=== PATIENT | female | born 1945 | race Caucasian/White ===

== ENCOUNTER 2019-06-30 07:03 | Day surgery (SDC) | payer MEDICARE, BC ==
[~2019-06-30 07:03] MED LIST: Sodium Chloride 0.9% 10 ML Syringe FLUSH PRN
[2019-06-30] MEDS ORDERED: Propofol 200 MG/20 ML SDV ONE ×3 (07:41→09:45)
[2019-06-30] MEDS ORDERED: fentaNYL 100 MCG/2 ML SDV ONE ×2 (07:41→07:42)
[2019-06-30] MEDS ORDERED: Ondansetron 4 MG/2 ML SDV ONE (07:46)
[2019-06-30] MEDS: Lactated Ringers 1,000 ML IV SCH (08:17)
--- NOTE | 2019-06-30 10:52 | OR ---
PREOPERATIVE DIAGNOSIS: Diagnostic colonoscopy and one episode of bright red blood per rectum. POSTOPERATIVE DIAGNOSES: 1. Pancolonic diverticulosis. 2. Internal hemorrhoids. BRIEF HISTORY OF PRESENT ILLNESS: Ms. Tanner is a 73-year-old female who has last had a colonoscopy greater than 10 years ago. She does not recall if there were polyps. I do not have records of this. At this time, she had a single episode of blood in her stool, none since and none before. No dark black stools. No family history or personal history of colorectal cancer. She is here for diagnostic colonoscopy. ANESTHESIA: MAC anesthesia. COMPLICATIONS: None. BLOOD LOSS: Minimal. START TIME: 0930. CECUM TIME: 0953. END TIME: 0959. FINDINGS: 1. Pancolonic diverticulosis. 2. Internal hemorrhoids. PREP QUALITY: Center class II. DETAILS OF PROCEDURE: After informed consent was obtained, the patient was brought to the operating room. MAC anesthesia was induced by Anesthesia colleagues. We began with a digital rectal exam which was unremarkable. Using the Endocuff device, the colonoscope was introduced into the anal canal. The sigmoid colon was tremendously difficult to get past and required multiple changes in abdominal pressure, and ultimately, we were able to get past it. I suspect this is related to her prior hysterectomy and her thin habitus. The colonoscope was then advanced all the way to the cecum. The appendiceal orifice and the IC valve were photographed. The colonoscope was then slowly withdrawn. No pathology was identified except for what is mentioned above in the findings. She did have internal hemorrhoids on the retroflexed view. We found no polyps. She will need another colonoscopy in 10 years. RKM: 06/30/2019 10:09:15 MODL: 06/30/2019 10:28:59 /[id number]
== END 2019-06-30 12:08 | disposition home or self-care (01) ==
LOC: VM.SDS 07:03
PROVIDERS: ATTEND Student in an Organized Health Care Education/Training Program
DX: K57.31 Diverticulosis of large intestine without perforation or abscess with bleeding (principal); K64.8 Other hemorrhoids; I10 Essential (primary) hypertension; E78.5 Hyperlipidemia, unspecified; Z87.891 Personal history of nicotine dependence; Z86.010 Personal history of colon polyps; Z79.899 Other long term (current) drug therapy
CPT/HCPCS: J2405; J2704; J3010; J7120

== ENCOUNTER 2019-11-21 13:28 | Emergency (ER) | payer MEDICARE, BC ==
[2019-11-21] MEDS ORDERED: Sodium Chloride 0.9% 10 ML Syringe FLUSH PRN (13:39)
--- NOTE | 2019-11-21 14:16 | CT ---
[id number] CT/CT Head WO IV EXAM: CT Head WO IV CLINICAL DATA: LOWER EXTREMITY RIGHT-SIDED WEAKNESS. COMPARISON STUDY: None FINDINGS: No intracranial hemorrhage, extra-axial fluid collection, mass, or acute ischemia. No hydrocephalus. Few scattered areas of hypodensity in the subcortical and periventricular white matter of both cerebral hemispheres. Findings are nonspecific but commonly seen as sequela of chronic obstructive pulmonary disease. Paranasal sinuses and mastoid air cells are clear. IMPRESSION: No acute intracranial findings. Tr Pierce MD 11/21/19 [id number] Thank you for allowing us to participate in the care of your patient.
[2019-11-21] MEDS ORDERED: Iopamidol 612 MG/ML 100 ML Bottle IVPUSH ONE (14:24)
[2019-11-21 14:33] LABS: PTT,PARTIAL THROMBOPLSTIN TIME 26.3 SEC (25.6-32.8)
[2019-11-21 14:40] LABS: ANION GAP 12.5 mmol/L (10-20); CHLORIDE,CL 104 mmol/L (98-107); SODIUM,NA 141 mmol/L (136-145)
--- NOTE | 2019-11-21 14:54 | CT ---
[id number] CT/CTA Head Neck EXAM: CT angiogram head and neck INDICATION: STROKE CODE. COMPARISON: CT head from today. DISCUSSION: Aortic arch: The partially imaged aortic arch is normal in caliber with a conventional branching morphology. Right carotid artery: Normal in caliber. Atherosclerosis without significant stenosis or other abnormality. Left carotid artery: Normal in caliber. Atherosclerosis without significant stenosis or other abnormality. Right vertebral artery: Normal in caliber. No significant stenosis or other abnormality. Left vertebral artery: Normal in caliber. No significant stenosis or other abnormality. Basilar artery: Normal in caliber. No significant stenosis or other abnormality. [place] of [place]: Conventional morphology. No vessel cut off, significant stenosis, aneurysm or vascular malformation is identified. Dural sinuses, jugular veins and cerebral veins: Limited evaluation of the cerebral veins, dural sinuses and jugular veins is unremarkable. Brain parenchyma: Unremarkable. Neck soft tissues: Unremarkable. Osseous structures: There are scattered degenerative changes in the imaged spine. IMPRESSION: Negative for large vessel occlusion or other acute significant abnormality. Tr Pierce MD 11/21/19 [id number] Thank you for allowing us to participate in the care of your patient.
[2019-11-21] MEDS ORDERED: Aspirin 81 MG Tab.Chew PO ONE (14:58)
--- NOTE | 2019-11-21 15:02 | EDM.PDOC ---
ED HPI GENERAL MEDICAL PROBLEM - General Stated Complaint: NUMB,DIZZINESS Time Seen by Provider: 11/21/19 13:40 Source of Information: Reports: Patient History Limitations: Reports: No Limitations - History of Present Illness INITIAL COMMENTS - FREE TEXT/NARRATIVE: Patient comes emergency department today from home with her with concerns of weakness to the right side of her body. Acutely at 1325 the patient was outside and suddenly developed numbness to the right side of her face and tongue. She also had weakness to her right hand and lower extremity as well. She tried to stand up and her right was much weaker than her left. When she tried to lift up her coffee cup she felt like the coffee cup was very heavy when it did not feel that way shortly there before. She has no headache. No visual acuity changes. No chest pain or shortness of breath or difficulty breathing. No palpitations. She does complain of some generalized weakness in her lower extremities more on the right than the left. No fever no chills. No abdominal pain no nausea or vomiting. She does have a history of high cholesterol hypertension and a smoker when she was in her 20s to 30s. Went on for about 10 to 15 minutes and then she came to the emergency department. She has no change in her visual acuity. She is able to ambulate with the assistance of 1. - Related Data Allergies Allergy/AdvReac Type Severity Reaction Status Date / Time No Known Allergies Allergy Verified 06/30/19 07:59 Home Meds: Home Meds Cholecalciferol (Vitamin D3) [Vitamin D3] 1 cap PO DAILY 06/22/19 [History] Dorzolamide HCl/Timolol Maleat [Cosopt Eye Drops] 1 drop EYEBOTH BID 06/22/19 [ History] Latanoprost [Xalatan 0.005% Ophth Soln] 1 drop EYEBOTH BEDTIME 06/22/19 [History ] Multivitamin [Multivitamins] 1 tab PO DAILY 06/22/19 [History] [place]-3 Fatty Acids/Fish Oil [Fish Oil 1,000 mg Softgel] 1 cap PO DAILY [History] hydroCHLOROthiazide [Hydrochlorothiazide] 25 mg PO DAILY 06/22/19 [History] ramipriL [Altace] 10 mg PO BID 06/22/19 [History] Past Medical History HEENT History: Reports: Glaucoma, Macular Degeneration Cardiovascular History: Reports: High Cholesterol, Hypertension Respiratory History: Reports: None Gastrointestinal History: Reports: Colon Polyp Musculoskeletal History: Reports: Other (See Below) Other Musculoskeletal History: carpel tunnel repair right hand Psychiatric History: Reports: None Oncologic (Cancer) History: Reports: None Dermatologic History: Reports: Other (See Below) Other Dermatologic History: alopecia - Past Surgical History Head Surgeries/Procedures: Reports: None Respiratory Surgical History: Reports: None GI Surgical History: Reports: Colonoscopy, Other (See Below) Other GI Surgeries/Procedures: banding of hermorrhoids Female Surgical History: Reports: D&C, Hysterectomy, Other (See Below) Other Female Surgeries/Procedures: bladder mesh placed ED ROS GENERAL - Review of Systems Review Of Systems: Comprehensive ROS is negative, except as noted in HPI. ED EXAM, NEURO - Physical Exam Exam: See Below Exam Limited By: No Limitations General Appearance: Alert, WD/WN, No Apparent Distress Eye Exam: Bilateral Eye: EOMI, Normal Inspection, PERRL Ears: Normal External Exam, Normal TMs Nose: Normal Inspection Throat/Mouth: Normal Inspection, Normal Lips, Normal Teeth, Normal Gums, Normal Oropharynx, Normal Voice, No Airway Compromise Head Exam: Atraumatic, Normocephalic Neck: Normal Inspection, Supple, Non-Tender Respiratory/Chest: No Respiratory Distress, Lungs Clear, Normal Breath Sounds, No Accessory Muscle Use, Chest Non-Tender Cardiovascular: Normal Peripheral Pulses, Regular Rate, Rhythm, No Edema GI/Abdominal: Normal Bowel Sounds, Soft, Non-Tender, No Organomegaly (Female) Exam: Deferred Rectal (Female) Exam: Deferred Neurological: Alert, Normal Mood/Affect, Normal Dorsiflexion, CN II-XII Intact, Normal Plantar Flexion, Normal Gait, Normal Reflexes, Oriented x 3, Abnormal Sensation (right face), Other (NIH of 2, 1 for the weakness of the RLE and parathesia to the right face. ). No: No Motor/Sensory Deficits (With a straight leg raise on the right she does have some drifting of the lower extremity although it does not touch the bed. She has no pronator drift of the upper extremities. She does complain of paresthesia to the right side of her face and tongue.), Ataxia, Abnormal Finger to Nose, Abnormal Light Touch, Abnormal Pin Prick, Abn 2 Pt Discrimination DTR: 2+: Bicep (R), Bicep (L), Patella (R), Patella (L), Achilles (R), Achilles (L) Back Exam: Normal Inspection, Full Range of Motion Extremities: Normal Inspection, Normal Range of Motion, No Pedal Edema, Normal Capillary Refill Psychiatric: Normal Affect, Normal Mood Skin Exam: Warm, Dry, Intact, Normal Color, No Rash EKG INTERPRETATION EKG Date: 11/21/19 Time: 14:18 Rhythm: NSR Rate (Beats/Min): 67 [place]: Normal P-Wave: Present QRS: Normal ST-T: Normal QT: Normal Comparison: NA - No Prior EKG Course - Orders/Labs/Meds Orders: Active Orders 24 hr Category Date Time Status Accu Check [Blood Glucose Check, Bedside] [RC] ONETIME Care 11/21/19 13:40 Active EKG Documentation Completion [RC] STAT Care 11/21/19 13:39 Active CTA Neck W & W/O Contrast [Ang Neck] [CT] Stat Exams 11/21/19 13:39 Taken Sodium Chloride 0.9% [Saline Flush] Med 11/21/19 13:39 Active 10 ml FLUSH ASDIRECTED PRN Peripheral IV Insertion Adult [OM.PC] Stat Oth 11/21/19 13:39 Ordered Medication Orders Sodium Chloride (Saline Flush) 10 ml FLUSH ASDIRECTED PRN PRN Reason: Keep Vein Open Labs: Laboratory Tests 11/21/19 11/21/19 11/21/19 Range/Units 14:15 14:15 14:15 WBC 5.8 (4.0-10.0) x10^3/uL RBC 4.03 (4.00-5.50) x10^6/uL Hgb 12.7 (12.0-16.0) g/dL Hct 37.6 (33.0-47.0) % MCV 93.3 H (78.0-93.0) fL MCH 31.5 (26.0-32.0) pg MCHC 33.8 (32.0-36.0) g/dL RDW Coeff of [place] 12.2 (10.0-15.0) % Plt Count 362 (130-400) x10^3/uL Neut % (Auto) 65.5 (50.0-80.0) % Lymph % (Auto) 23.4 L (25.0-50.0) % [place] % (Auto) 8.8 (2.0-11.0) % Eos % (Auto) 2.1 (0.0-4.0) % Baso % (Auto) 0.2 (0.2-1.2) % PT (9.5-12.3) SEC INR (2.0-3.5) APTT (25.6-32.8) SEC Sodium 141 (136-145) mmol/L Potassium 3.5 (3.5-5.1) mmol/L Chloride 104 (98-107) mmol/L Carbon Dioxide 28 (21-32) mmol/L Anion Gap 12.5 (10-20) mmol/L BUN 18 (7-18) mg/dL Creatinine 1.0 (0.55-1.02) mg/dL Est Cr Clr Drug Dosing TNP Estimated GFR (MDRD) 55 Glucose 125 H (74-106) mg/dL POC Glucose (74-106) mg/dL Lactic Acid 1.9 (0.4-2.0) mmol/L Calcium 9.1 (8.5-10.1) mg/dL Corrected Calcium 9.90 (8.5-10.1) mg/dL Total Bilirubin 0.3 (0.2-1.0) mg/dL AST 19 (15-37) U/L ALT 11 L (14-59) U/L Alkaline Phosphatase 89 (46-116) U/L Troponin I < 0.017 (<=0.056) ng/mL C-Reactive Protein 0.4 (<=0.9) mg/dL Total Protein 6.3 L (6.4-8.2) g/dL Albumin 3.0 L (3.4-5.0) g/dL Globulin 3.3 Albumin/Globulin Ratio 0.91 11/21/19 11/21/19 Range/Units 14:15 14:17 WBC (4.0-10.0) x10^3/uL RBC (4.00-5.50) x10^6/uL Hgb (12.0-16.0) g/dL Hct (33.0-47.0) % MCV (78.0-93.0) fL MCH (26.0-32.0) pg MCHC (32.0-36.0) g/dL RDW Coeff of [place] (10.0-15.0) % Plt Count (130-400) x10^3/uL Neut % (Auto) (50.0-80.0) % Lymph % (Auto) (25.0-50.0) % [place] % (Auto) (2.0-11.0) % Eos % (Auto) (0.0-4.0) % Baso % (Auto) (0.2-1.2) % PT 10.3 (9.5-12.3) SEC INR 0.9 L (2.0-3.5) APTT 26.3 (25.6-32.8) SEC Sodium (136-145) mmol/L Potassium (3.5-5.1) mmol/L Chloride (98-107) mmol/L Carbon Dioxide (21-32) mmol/L Anion Gap (10-20) mmol/L BUN (7-18) mg/dL Creatinine (0.55-1.02) mg/dL Est Cr Clr Drug Dosing Estimated GFR (MDRD) Glucose (74-106) mg/dL POC Glucose 132 H (74-106) mg/dL Lactic Acid (0.4-2.0) mmol/L Calcium (8.5-10.1) mg/dL Corrected Calcium (8.5-10.1) mg/dL Total Bilirubin (0.2-1.0) mg/dL AST (15-37) U/L ALT (14-59) U/L Alkaline Phosphatase (46-116) U/L Troponin I (<=0.056) ng/mL C-Reactive Protein (<=0.9) mg/dL Total Protein (6.4-8.2) g/dL Albumin (3.4-5.0) g/dL Globulin Albumin/Globulin Ratio Meds: Medications Generic Name Dose Route Start Last Admin Trade Name Freq PRN Reason Stop Dose Admin Sodium Chloride 10 ml 11/21/19 13:39 Saline Flush FLUSH ASDIRECTED PRN Keep Vein Open Discontinued Medications Generic Name Dose Route Start Last Admin Trade Name Freq PRN Reason Stop Dose Admin Aspirin 243 mg 11/21/19 14:58 Aspirin PO 11/21/19 14:59 ONETIME ONE Iopamidol 100 ml 11/21/19 14:24 11/21/19 14:24 Isovue-300 (61%) IVPUSH 11/21/19 14:25 100 ml ONETIME ONE Administration - Radiology Interpretation Free Text/Narrative:: CT of the head per radiology without contrast no acute findings. CTA head and neck per radiology negative for large vessel occlusion or other acute significant abnormality. - Re-Assessments/Exams Free Text/Narrative Re-Assessment/Exam: 11/21/19 15:51 The patient's presentation a stroke code was activated immediately upon my evaluation of the patient. EKG is normal sinus rhythm She has a normal glucose. She went immediately to the CT scanner. Initial review extemporaneously by myself I do not see any acute hemorrhage or old ischemia. CTA of the head and neck was ordered. Aprox 1425 the patients symptoms of parathesia to the face and tongue and the weakness to her RLE has resolved and her NIH is now 0. I called and spoke with Dr. Santos the stroke neurologist injection mold technician at [place]. HPI ER course findings and concerns were relayed to her verbally over the phone. She accepted the patient in transfer at this time with no other intervention. THe patient did take an 81mg aspirin prior to arrival to the ED and I will give her 243 in the ED for a total full dose of aspirin. I discussed the findings and concerns of the TIA with the patient and her . Their questions were answered. They are comfortable with the plan to transfer to [facility] for further evaluation of her TIA and a stroke work- up. Departure - Departure Time of Disposition: 13:56 Disposition: DC/Tfer to Acute Hospital 02 Clinical Impression: TIA (transient ischemic attack) - Discharge Information Referrals: Kayla Montoya MD [Primary Care Provider] - Forms: Interfacility Transfer [facility] Sepsis Event Note - Focused Exam Date Exam was Performed: 11/21/19 Time Exam was Performed: 15:47 - My Orders Last 24 Hours: My Active Orders 11/21/19 13:39 EKG Documentation Completion [RC] STAT CTA Neck W & W/O Contrast [Ang Neck] [CT] Stat Sodium Chloride 0.9% [Saline Flush] 10 ml FLUSH ASDIRECTED PRN Peripheral IV Insertion Adult [OM.PC] Stat 11/21/19 13:40 Accu Check [Blood Glucose Check, Bedside] [RC] ONETIME - Assessment/Plan Last 24 Hours: My Active Orders 11/21/19 13:39 EKG Documentation Completion [RC] STAT CTA Neck W & W/O Contrast [Ang Neck] [CT] Stat Sodium Chloride 0.9% [Saline Flush] 10 ml FLUSH ASDIRECTED PRN Peripheral IV Insertion Adult [OM.PC] Stat 11/21/19 13:40 Accu Check [Blood Glucose Check, Bedside] [RC] ONETIME
== END 2019-11-21 15:35 | disposition short-term general hospital (02) ==
LOC: VM.ED 13:28
DX: G45.9 Transient cerebral ischemic attack, unspecified (principal); I10 Essential (primary) hypertension; Z79.899 Other long term (current) drug therapy
CPT/HCPCS: 36415; 70450; 70496; 70498; 80053; 82962; 83605; 84484; 85025; 85610; 85730; 86140; 93005; 93010; 99284-GF; 99285-25; Q9967

== ENCOUNTER 2022-08-06 15:38 | Inpatient (IN) | payer MEDICARE, BC ==
[2022-08-06] MEDS ORDERED: Ondansetron 4 MG/2 ML SDV IV PRN (15:59)
[2022-08-06] MEDS ORDERED: Sodium Chloride 0.9% 10 ML Syringe FLUSH PRN (15:59)
[2022-08-06] MEDS ORDERED: Ondansetron 4 MG Tab.DIS PO PRN (15:59)
[2022-08-06] MEDS ORDERED: Pantoprazole 40 MG Vial IVPUSH ONE (16:15)
[2022-08-06] MEDS ORDERED: Sodium Chloride 0.9% 1,000 ML IV SCH (16:15)
[2022-08-06] MEDS ORDERED: Acetaminophen 325 MG Tab PO PRN (17:16)
[2022-08-06] MEDS ORDERED: Latanoprost 0.005% Ophth Soln 2.5 ML Bottle EYEBOTH SCH (21:00)
[2022-08-06] MEDS ORDERED: Dorzolamide/Timolol 2%-0.5% Ophth Soln 10 ML Bottle EYEBOTH SCH (21:00)
[2022-08-06] MEDS ORDERED: RAMIPRIL 10 MG PO SCH (21:00)
[2022-08-07] MEDS ORDERED: Pantoprazole 40 MG Vial IVPUSH SCH (06:00)
[2022-08-07] MEDS ORDERED: Metoprolol Succinate 50 MG Tab.ER PO SCH (09:00)
== END 2022-08-06 20:37 | disposition short-term general hospital (02) | DRG 378 ==
LOC: VM.MS 15:38
PROVIDERS: ADMIT Internal Medicine; ATTEND Internal Medicine
DX: K92.0 Hematemesis (principal); D62 Acute posthemorrhagic anemia; Z20.822 Contact with and (suspected) exposure to COVID-19; H40.9 Unspecified glaucoma; H35.30 Unspecified macular degeneration; I48.0 Paroxysmal atrial fibrillation; Z79.01 Long term (current) use of anticoagulants; Z86.73 Personal history of transient ischemic attack (TIA), and cerebral infarction without residual deficits; Z79.82 Long term (current) use of aspirin; Z79.899 Other long term (current) drug therapy; Z98.890 Other specified postprocedural states; Z86.010 Personal history of colon polyps; Z90.710 Acquired absence of both cervix and uterus
CPT/HCPCS: 36415; 85018; C9113; J7030; U0002

== ENCOUNTER 2022-11-14 12:27 | Day surgery (SDC) | payer MEDICARE, BC ==
[2022-11-14] MEDS ORDERED: fentaNYL 100 MCG/2 ML SDV ONE (12:47)
[2022-11-14] MEDS ORDERED: Propofol 200 MG/20 ML SDV ONE (12:47)
[2022-11-14] MEDS: Lactated Ringers 1,000 ML IV SCH (12:56)
== END 2022-11-14 15:55 | disposition home or self-care (01) ==
LOC: VM.SDS 12:27
PROVIDERS: ATTEND Family Medicine
DX: K31.89 Other diseases of stomach and duodenum (principal); I10 Essential (primary) hypertension; E78.5 Hyperlipidemia, unspecified; I47.1 Supraventricular tachycardia; I48.91 Unspecified atrial fibrillation; Z87.19 Personal history of other diseases of the digestive system; Z79.01 Long term (current) use of anticoagulants; Z86.010 Personal history of colon polyps; Z86.73 Personal history of transient ischemic attack (TIA), and cerebral infarction without residual deficits; Z98.890 Other specified postprocedural states; Z79.899 Other long term (current) drug therapy; Z90.710 Acquired absence of both cervix and uterus; Z87.891 Personal history of nicotine dependence
CPT/HCPCS: 00731; 88305; J2704; J3010; J7120

== ENCOUNTER 2024-07-07 17:32 | Emergency (ER) | payer MEDICARE, BC ==
[2024-07-07 18:01] LABS: BASOPHILS PERCENT AUTO 0.1 % (0.2-1.2); EOSINOPHILS ABSOLUTE AUTO 0.2 x10^3/uL (0.0-0.5); EOSINOPHILS PERCENT AUTO 1.5 % (0.0-4.0); HEMATOCRIT 39.5 % (33.0-47.0); HEMOGLOBIN 13.3 g/dL (12.0-16.0); LYMPHOCYTES ABSOLUTE AUTO 1.8 x10^3/uL (1.0-4.8); MEAN CORPUSCULAR HEMOGLOBIN 32.4 pg (26.0-32.0); MEAN CORPUSCULAR HGB CONC 33.7 g/dL (32.0-36.0); MEAN CORPUSCULAR VOLUME 96.1 fL (78.0-93.0); MONOCYTES ABSOLUTE AUTO 0.7 x10^3/uL (0.0-0.8); MONOCYTES PERCENT AUTO 7.1 % (2.0-11.0); NEUTROPHILS ABSOLUTE AUTO 7.4 x10^3/uL (1.8-7.7); NEUTROPHILS PERCENT AUTO 73.3 % (50.0-80.0); PLATELET COUNT,PLT 235 x10^3/uL (130-400); RED BLOOD CELL COUNT 4.11 x10^6/uL (4.00-5.50); WHITE BLOOD CELL COUNT,WBC 10.1 x10^3/uL (4.0-10.0)
[2024-07-07 18:15] LABS: A/G RATIO 1.19; ALANINE AMINOTRANSFERASE,ALT 14 U/L (14-59); ALBUMIN 3.7 g/dL (3.4-5.0); ALKALINE PHOSPHATASE 126 U/L (46-116); ASPARTATE AMNIOTRANSFERASE,AST 17 U/L (15-37); BILIRUBIN TOTAL 0.3 mg/dL (0.2-1.0); BLOOD UREA NITROGEN,BUN 16 mg/dL (7-18); CALCIUM 9.4 mg/dL (8.5-10.1); CARBON DIOXIDE,CO2 28 mmol/L (21-32); CHLORIDE,CL 104 mmol/L (98-107); CREATININE 0.7 mg/dL (0.55-1.02); GLUCOSE RANDOM 107 mg/dL (70-99); PROTEIN TOTAL,TP 6.8 g/dL (6.4-8.2); SODIUM,NA 143 mmol/L (136-145)
[2024-07-07 18:17] LABS: C-REACTIVE PROTEIN < 0.50 mg/dL (<=0.50); ESTIMATED GFR 90 mL/min (>=60)
== END 2024-07-07 18:35 | disposition home or self-care (01) ==
LOC: VM.ED 17:32
DX: K64.4 Residual hemorrhoidal skin tags (principal); I10 Essential (primary) hypertension; Z86.73 Personal history of transient ischemic attack (TIA), and cerebral infarction without residual deficits; Z90.710 Acquired absence of both cervix and uterus; Z79.01 Long term (current) use of anticoagulants; Z79.899 Other long term (current) drug therapy
CPT/HCPCS: 36415; 80053; 85025; 86140; 99284